=== PATIENT | male | born 1960 | race Two or more races ===

== ENCOUNTER 2016-06-14 02:02 | Emergency (ER) | payer MEDICAID ==
[2016-06-14] MEDS ORDERED: NS 1,000 ML IV ONE (02:05)
[2016-06-14] MEDS ORDERED: fentaNYL 100 MCG/2 ML INJ IVP ONE (02:06)
--- NOTE | 2016-06-14 02:07 | EDPHY ---
H & P HPI/ROS: HPI CHIEF COMPLAINT: Left lower lateral rib pain HISTORY OF PRESENT ILLNESS: This patient is a 55-year-old male significant past medical history for polysubstance abuse, alcohol abuse who presents emergency room by EMS from the [facility]. He states approximately 4-5 hours ago he developed a left lateral lower rib pain. He tells me it is sharp in nature it is worse with truncal axilla movement, worse when he bends over, tells me it does hurt when you press there. He tells me he gets this pain when he drinks too much alcohol. He tells me his last drink was earlier in the day. He has been staying at the [facility]. He denies shortness of breath, denies pleuritic pain, denies chest pain or chest pressure, denies hemoptysis. The pain is not worse when he breathes in he denies back pain or abdominal pain he does admit to nausea with 1 episode of nonbilious nonbloody vomiting. Past Medical History: Polysubstance abuse, alcohol abuse, mi w/o Stents. Social History:History of polysubstance abuse and daily alcoholism, staying at the [facility] currently Family History: Noncontributory ROS REVIEW OF SYSTEMS: A comprehensive 10 point review of systems is otherwise negative aside from elements mentioned in the history of present illness. Exam Constitutional triage nursing summary reviewed, vital signs reviewed, awake/ alert. Eyes normal conjunctivae and sclera, EOMI, PERRLA. HENT normal inspection, atraumatic, moist mucus membranes, no epistaxis, neck supple/ no meningismus, no raccoon eyes. Respiratory clear to auscultation bilaterally, normal breath sounds, no respiratory distress, no wheezing. Cardiovascular chest wall exam: This patient is focal point tenderness left lateral lower rib region and underneath his costal margin on the left lateral side. rate normal, regular rhythm, no murmur, no edema, distal pulses normal. Gastrointestinal soft, non-tender, no rebound, no guarding, normal bowel sounds, no distension, no pulsatile mass. Genitourinary no CVA tenderness. Musculoskeletal no midline vertebral tenderness, full range of motion, no calf swelling, no tenderness of extremities, no meningismus, good pulses, neurovascularly intact. Skin pink, warm, & dry, no rash, skin atraumatic. Neurologic awake, alert and oriented x 3, AAOx3, moves all 4 extremities equally, motor intact, sensory intact, CN II-XII intact, normal cerebellar, normal vision, normal speech. Psychiatric normal mood/affect. Heme/Lymph/Immune no lymphadenopathy. Differential Diagnosis: Includes but is not limited to in a particular order musculoskeletal rib pain, pneumonia, pleurisy, pulmonary embolism, atelectasis, aspiration pneumonia, alcoholism, electrolyte abnormality, doubt acute coronary syndrome, pancreatitis Medical Decision Making: this patient had an IV established be medicated IV fentanyl for acute pain control the left lateral rib pain, we will check a lipase, blood work, x-ray EKG and troponin and D-dimer it is unlikely to be ACS or pulmonary embolism presentation. Patient be placed on full assembler installer structures. Re-evaluation: EKG interpretation by me on record in [employer] system. Impression time of EKG 2:24 a.m., this is sinus rhythm rate of 87, no acute ischemic changes specifically no ST elevation, ST depression, T wave abnormality, prolonged intervals normal appearing EKG. ED x-ray chest two view: negative for acute cardiopulmonary disease. No evidence of pneumothorax or significant rib fracture. CT scan of the angiogram chest The results of the study are negative for pulmonary embolism, no pneumothorax no pneumonia noted to have coronary calcifications. The study was read by Dr. Casper I viewed the images myself on the PACS system. 0352: Re-examination at this time this patient is sleeping. Once woke he tells me feels much better he has no pain anywhere he is agreeable for discharge back to the [facility]. of note the patient's drug screen is positive for alcohol, cocaine and marijuana. I did explain to make a be very dangerous doing cocaine with underlying heart disease he understands to refrain from doing this drug. His EKG and troponin normal his D-dimer was positive he had a CT angiogram that did not show any significant abnormality specifically no PE. His pain is now gone. He denies having chest pain or shortness of breath his pain was very musculoskeletal left lateral lower rib edge costal margin. This is highly unlikely to be ACS. Given his normal EKG, normal CT scan normal blood work normal troponin and him feeling much better allow him to be discharged from the ER. Source: Patient, EMS - Personal History Tetanus Vaccine Date: within 10 years - Medical/Surgical History Hx Asthma: No Hx Chronic Respiratory Disease: No Hx Diabetes: No Hx Cardiac Disease: No Hx Renal Disease: No Hx Cirrhosis: No Hx Alcoholism: Yes Hx HIV/AIDS: No Hx Splenectomy or Spleen Trauma: No Other PMH: ETOH, Recently told he has Hep C. Was in [facility] and had steroid injections for slipped disc. - Social History Smoking Status: Current every day smoker Constitutional: Initial Vital Signs Temperature (C) 37 C 06/14/16 02:11 Heart Rate 80 06/14/16 02:11 Respiratory Rate 18 06/14/16 02:11 Blood Pressure 131/99 H 06/14/16 02:11 O2 Sat (%) 93 06/14/16 02:11 O2 Delivery Mode Room Air Allergies/Adverse Reactions: No Known Allergies Allergy (Verified 06/14/16 02:10) Home Medications: Medication Instructions Recorded Multivitamin 01/04/16 Julian-3 01/04/16 Potassium 01/04/16 Medical Decision Making - Data Points Laboratory Results: Laboratory Results 06/14/16 02:36 06/14/16 02:36 06/14/16 06/14/16 02:36 02:25 WBC 9.71 H 10^3/uL (3.80-9.50) RBC 4.82 10^6/uL (4.40-6.38) Hgb 15.9 g/dL (13.7-17.5) Hct 44.2 % (40.0-51.0) MCV 91.7 fL (81.5-99.8) MCH 33.0 pg (27.9-34.1) MCHC 36.0 g/dL (32.4-36.7) RDW 12.7 % (11.5-15.2) Plt Count 157 10^3/uL (150-400) MPV 10.8 fL (8.7-11.7) Neut % (Auto) 71.6 % (39.3-74.2) Lymph % (Auto) 24.1 % (15.0-45.0) Greene % (Auto) 3.7 L % (4.5-13.0) Eos % (Auto) 0.1 L % (0.6-7.6) Baso % (Auto) 0.3 % (0.3-1.7) Nucleat RBC Rel Count 0.0 % (0.0-0.2) Absolute Neuts (auto) 6.95 H 10^3/uL (1.70-6.50) Absolute Lymphs (auto) 2.34 10^3/uL (1.00-3.00) Absolute Monos (auto) 0.36 10^3/uL (0.30-0.80) Absolute Eos (auto) 0.01 L 10^3/uL (0.03-0.40) Absolute Basos (auto) 0.03 10^3/uL (0.02-0.10) Absolute Nucleated RBC 0.00 10^3/uL (0-0.01) Immature Gran % 0.2 % (0.0-1.1) Immature Gran # 0.02 10^3/uL (0.00-0.10) D-Dimer 0.58 H ug/mLFEU (0.00-0.50) Sodium 146 H mEq/L (134-144) Potassium 3.5 mEq/L (3.5-5.2) Chloride 109 mEq/L (97-110) Carbon Dioxide 20 L mEq/l (22-31) Anion Gap 17 mEq/L (8-16) BUN 11 mg/dL (7-23) Creatinine 0.8 mg/dL (0.7-1.3) Estimated GFR > 60 Glucose 94 mg/dL (70-100) Calcium 9.0 mg/dL (8.5-10.4) Magnesium 2.0 mg/dL (1.6-2.3) Total Bilirubin 1.0 mg/dL (0.1-1.4) Conjugated Bilirubin 0.5 mg/dL (0.0-0.5) Unconjugated Bilirubin 0.5 mg/dL (0.0-1.1) AST 44 IU/L (17-59) ALT 64 IU/L (21-72) Alkaline Phosphatase 100 IU/L (38-126) Troponin I < 0.012 ng/mL (0-0.034) NT-Pro-B Natriuret Pep 42 pg/mL (0-125) Total Protein 7.6 g/dL (6.3-8.2) Albumin 4.3 g/dL (3.5-5.0) Lipase 122.0 IU/L (23-300) Urine Opiates Screen NEGATIVE (NEGATIVE) Urine Barbiturates NEGATIVE (NEGATIVE) Ur Phencyclidine Scrn NEGATIVE (NEGATIVE) Ur Amphetamine Screen NEGATIVE (NEGATIVE) U Benzodiazepines Scrn NEGATIVE (NEGATIVE) Urine Cocaine Screen NON-NEGATIVE H (NEGATIVE) U Marijuana (THC) Screen NON-NEGATIVE H (NEGATIVE) Ethyl Alcohol 61 H mg/dL (0-10) Medications Given: Discontinued Medications Fentanyl (Sublimaze) 50 mcg IVP EDNOW ONE Stop: 06/14/16 02:07 Last Admin: 06/14/16 02:39 Dose: 50 mcg Sodium Chloride (Ns) 1,000 mls @ 0 mls/hr IV ONCE ONE PRN Reason: As Directed Stop: 06/14/16 02:06 Last Admin: 06/14/16 02:39 Dose: 1,000 mls Lorazepam (Ativan Injection) 1 mg IVP EDNOW ONE Stop: 06/14/16 03:19 Last Admin: 06/14/16 03:25 Dose: 1 mg Departure - Departure Disposition: Home, Routine, Self-Care Clinical Impression: Chest wall pain Condition: Fair Instructions: Chest Wall Pain (ED) Additional Instructions: 1. Return emergency room if he develops any worsening symptoms questions or concerns. 2. Please refrain from doing drugs or drinking alcohol.
[2016-06-14 02:12] VITALS: BP 131/99; RESP 18; TEMP 98.6
--- NOTE | 2016-06-14 02:25 | CPEKG ---
Heart Rate: 87 RR Interval: 690 P-R Interval: 156 QRSD Interval: 78 QT Interval: 364 QTC Interval: 438 P Gill: 63 QRS Gill: 28 T Wave Gill: 59 EKG Severity - NORMAL ECG - EKG Impression: SINUS RHYTHM Electronically Signed By: Willie Morales 16-Jun-2016 05:16:56
[2016-06-14 02:44] LABS: % IMMATURE GRANULYOCYTES 0.2 % (0.0-1.1); ABSOLUTE IMMATURE GRANULOCYTES 0.02 10^3/uL (0.00-0.10); ADD DIFF? NO; ADD MORPH? NO; ADD SCAN? NO; ATYPICAL LYMPHOCYTE FLAG 10 (0-99); FRAGMENT RBC FLAG 0 (0-99); HEMATOCRIT 44.2 % (40.0-51.0); HEMOGLOBIN 15.9 g/dL (13.7-17.5); LEFT SHIFT FLG 0 (0-99); LIPEMIA HEMOLYSIS FLAG 90 (0-99); MEAN CELL VOLUME 91.7 fL (81.5-99.8); MEAN PLATELET VOLUME 10.8 fL (8.7-11.7); PLATELET CLUMPS FLAG 10 (0-99); PLATELET COUNT 157 10^3/uL (150-400); RED BLOOD CELL COUNT 4.82 10^6/uL (4.40-6.38); RED CELL DISTRIBUTION WIDTH 12.7 % (11.5-15.2)
[2016-06-14 03:01] LABS: ALANINE AMINOTRANSFERASE 64 IU/L (21-72); ALBUMIN 4.3 g/dL (3.5-5.0); ALKALINE PHOSPHATASE 100 IU/L (38-126); ANION GAP 17 mEq/L (8-16); ASPARTATE AMINOTRANSFERASE 44 IU/L (17-59); CARBON DIOXIDE 20 mEq/l (22-31); CHLORIDE 109 mEq/L (97-110); CREATININE 0.8 mg/dL (0.7-1.3); ETHANOL SERUM 61 mg/dL (0-10); GLOMERULAR FILTRATION RATE > 60; GLUCOSE 94 mg/dL (70-100); POTASSIUM 3.5 mEq/L (3.5-5.2); SODIUM 146 mEq/L (134-144)
[2016-06-14 03:02] LABS: BILIRUBIN-CONJUGATED 0.5 mg/dL (0.0-0.5); BILIRUBIN-UNCONJUGATED 0.5 mg/dL (0.0-1.1); TOTAL PROTEIN 7.6 g/dL (6.3-8.2)
[2016-06-14] MEDS ORDERED: IOPAMIDOL (ISOVUE 370) 100 ML BTL IV ONE (03:04)
[2016-06-14 03:12] LABS: TROPONIN I < 0.012 ng/mL (0-0.034)
[2016-06-14] MEDS ORDERED: LORazepam 2 MG/ML INJ IVP ONE (03:18)
[2016-06-14 03:26] VITALS: PULSE 90; O2SAT 94
--- NOTE | 2016-06-14 09:15 | DX ---
PA and lateral chest. June 14, 2016at 1:45 AM. Clinical History: Chest pain. Comparison Study: November 22, 2012.. Findings: The lungs are clear. No pleural disease identified. Heart size is normal. Moderate tortuosity descending thoracic aorta.. Impression: Stable negative chest.
--- NOTE | 2016-06-14 16:27 | CT ---
CT Chest Pulmonary Angiogram With Contrast Enhancement and Multiplanar Reconstructions 2016 at 0317 Hours History: Chest pain, elevated D-dimer. Comparison: CT from December 2006. Technique: 1.25-mm axial multidetector helical CT angiogram imaging was performed through the chest w hile 90 mL [id number]-[id number] were injected intravenously without complication. The images were then transfe rred to an independent workstation where multiplanar and three-dimensional reconstructions were perfo rmed by the interpreting physician and reviewed at multiple windows. Dose reduction techniques were u tilized. CT Pulmonary Angiogram Findings: No CT evidence of definite pulmonary thromboemboli. No aortic aneur ysm or dissection. Heart is normal in size. Coronary artery calcifications noted. CT Chest Findings: No pneumonia, pleural effusion, or pneumothorax. No suspicious pulmonary nodules o r significant adenopathy. Mild degenerative disk disease mid to lower thoracic spine without acute co mpression fracture. Old midsternal fracture deformity. Impressions: 1. No definite pulmonary thromboemboli. 2. No aortic aneurysm or dissection. 3. Coronary artery calcifications. 4. No acute pneumonia, pleural effusion, or pneumothorax. Findings and recommendations discussed with emergency department physician, Dr. Alfa Morales at 033 5 hours today. Final report concurs with initial preliminary interpretation.
== END 2016-06-14 04:10 | disposition home or self-care (01) ==
LOC: EDUNIT#
DX: R07.89 Other chest pain (principal); F17.200 Nicotine dependence, unspecified, uncomplicated
CPT/HCPCS: 80305; 96374; G0480; J3010; Q9967